=== PATIENT | female | born 1955 | race American Indian/Alaskan Native ===

== ENCOUNTER 2019-07-10 12:10 | Emergency (ER) | payer OTHER ==
--- NOTE | 2019-07-10 12:29 | Event Note ---
ED Screening Note Date of service: 07/10/19 Time: 12:24 ED Screening Note: This is a 64 y.o. F. that presents to the ER with headache, left sided facial pain numbness and LUE numbness. Patient states symptoms started this morning. This initial assessment/diagnostic orders/clinical plan/treatment(s) is/are subject to change based on patients health status, clinical progression and re- assessment by fellow clinical providers in the ED. Further treatment and workup at subsequent clinical providers discretion. Patient/guardian urged not to elope from the ED as their condition may be serious if not clinically assessed and managed. Initial orders include: Labs and CT of head
[2019-07-10 13:56] LABS: BUN/Creatinine Ratio 20; Blood Urea Nitrogen 14 mg/dL (7-17); Calcium 9.2 mg/dL (8.4-10.2); Hemolysis Index 19
[2019-07-10 14:15] LABS: Basophils % (Auto) 0.6 % (0.0-1.8); Eosinophils # (Auto) 0.1 K/mm3 (0.0-0.4); Eosinophils % (Auto) 0.9 % (0.0-4.3); Hematocrit 40.8 % (30.3-42.9); Hemoglobin 13.5 gm/dl (10.1-14.3); Lymphocytes # (Auto) 1.8 K/mm3 (1.2-5.4); Lymphocytes % (Auto) 24.8 % (13.4-35.0); Mean Corpuscular HGB Conc 33 % (30-34); Mean Corpuscular Volume 95 fl (79-97); Monocytes # (Auto) 0.5 K/mm3 (0.0-0.8); Monocytes % (Auto) 6.1 % (0.0-7.3); Platelet Count 226 K/mm3 (140-440); Red Blood Count 4.31 M/mm3 (3.65-5.03); Red Cell Distribution Width 12.5 % (13.2-15.2)
--- NOTE | 2019-07-10 14:46 | Cat Scan Report ---
CT HEAD WITHOUT CONTRAST INDICATION : Migraine headaches. TECHNIQUE: Axial imaging performed from the skull apex through the skull base without the use of con trast. Sagittal and coronal reformatted images. All CT scans at this location are performed using C T dose reduction for ALARA by means of automated exposure control. COMPARISON: None FINDINGS: Parenchyma: No acute intracranial hemorrhage or parenchymal abnormality. Ventricles: Ventricles are normal in size and appear symmetric. Bones: No acute osseous abnormality. Sinuses: Sinuses and mastoid air cells are clear. Soft tissues: Soft tissues including the orbits appear normal. IMPRESSION: No acute abnormality. Signer Name: Talon Yoo Jr, MD Signed: 07/10/2019 2:42 PM Workstation Name: [id number]
--- NOTE | 2019-07-10 16:45 | Emergency Department Report ---
ED General Adult HPI - General Chief complaint: Neuro Symptoms/Deficit Stated complaint: CHEST PAIN/SEIZURE/NAUSEA/SOB Time Seen by Provider: 07/10/19 12:23 Source: patient Mode of arrival: Wheelchair Limitations: No Limitations - History of Present Illness Initial comments: 64-year-old female with a history of vertigo presents after stating that she had a seizure earlier today. Patient denies any prior history of seizure activity. Patient denies any urinary incontinence or tongue biting. Patient complains of tingling in her left arm. Patient states she's been having chest pain as well as started today. Patient states the pain is currently resolved. Patient denies any shortness of breath. Patient has no history of PE or DVT. Patient denies any fecal incontinence and denies headache. - Related Data Allergies Allergy/AdvReac Type Severity Reaction Status Date / Time tramadol Allergy Hives Verified 07/10/19 12:14 Sulfa (Sulfonamide AdvReac Hives Verified 07/10/19 12:14 Antibiotics) ED Review of Systems ROS: Stated complaint: CHEST PAIN/SEIZURE/NAUSEA/SOB Other details as noted in HPI Constitutional: denies: chills, fever Eyes: denies: eye pain, eye discharge, vision change ENT: denies: ear pain, throat pain Respiratory: SOB at rest Cardiovascular: chest pain Endocrine: no symptoms reported Gastrointestinal: denies: abdominal pain, nausea, diarrhea Genitourinary: denies: urgency, dysuria, discharge Musculoskeletal: denies: back pain, joint swelling, arthralgia Skin: denies: rash, lesions Neurological: other (seizure) Psychiatric: denies: anxiety, depression Hematological/Lymphatic: denies: easy bleeding, easy bruising ED Past Medical Hx - Past Medical History Previous Medical History?: Yes Hx Seizures: Yes - Surgical History Past Surgical History?: Yes Additional Surgical History: C SECTION - Social History Smoking Status: Never Smoker Substance Use Type: None ED Physical Exam - General Limitations: No Limitations General appearance: alert, in no apparent distress, other (comfortable) - Head Head exam: Present: atraumatic, normocephalic - Eye Eye exam: Present: normal appearance - ENT ENT exam: Present: mucous membranes moist - Neck Neck exam: Present: normal inspection - Respiratory Respiratory exam: Present: normal lung sounds bilaterally. Absent: respiratory distress - Cardiovascular Cardiovascular Exam: Present: regular rate, normal rhythm. Absent: systolic murmur, diastolic murmur, rubs, gallop - GI/Abdominal GI/Abdominal exam: Present: soft, normal bowel sounds - Extremities Exam Extremities exam: Present: normal inspection - Back Exam Back exam: Present: normal inspection - Neurological Exam Neurological exam: Present: alert, oriented X3 - Psychiatric Psychiatric exam: Present: normal affect, normal mood - Skin Skin exam: Present: warm, dry, intact, normal color. Absent: rash ED Course Vital Signs 07/10/19 07/10/19 07/10/19 12:24 14:29 15:57 Temperature 98.8 F Pulse Rate 57 L 55 L 65 Respiratory 18 12 12 Rate Blood Pressure 129/78 136/74 143/77 [Left] O2 Sat by Pulse 100 100 99 Oximetry 07/10/19 17:19 Temperature Pulse Rate 54 L Respiratory 16 Rate Blood Pressure 137/72 [Left] O2 Sat by Pulse 97 Oximetry ED Medical Decision Making - Lab Data Result diagrams: 07/10/19 13:14 07/10/19 13:14 - EKG Data -: EKG Interpreted by Pr EKG shows normal: sinus rhythm Rate: normal - EKG Data When compared to previous EKG there are: no significant change - Medical Decision Making Patient currently is without chest pain. Patient has a EKG was shows no evidence of acute cardiac manifestation of disease. Troponin shows that is normal as well. Patient's CT head shows no acute pathology either. Patient be discharged to follow up with PCP as well as neurology as an outpatient. Patient is PERC negative. - Differential Diagnosis INtracranial Bleed; Dehdyration; anemia; pneumonia; pneumothorax; arrhythmi Critical care attestation.: If time is entered above; I have spent that time in minutes in the direct care o f this critically ill patient, excluding procedure time. ED Disposition Clinical Impression: Seizure, Chest pain Disposition: -01 TO HOME OR SELFCARE Is pt being admited?: No Condition: Stable Instructions: Chest Pain (ED), Epilepsy (ED) Referrals: [facility] BRADEN MD [Primary Care Provider] - 3-5 Days FABRICE SANTOS MD [Staff Physician] - 3-5 Days AYANNA HUERTAS MD [Staff Physician] - 3-5 Days Time of Disposition: 19:03 Print Language: NAMIBIAN
--- NOTE | 2019-07-10 18:25 | XRay Report ---
CHEST 1 VIEW INDICATION / CLINICAL INFORMATION: chest pain. COMPARISON: None available. FINDINGS: SUPPORT DEVICES: None. HEART / MEDIASTINUM: No significant abnormality. LUNGS / PLEURA: No significant pulmonary or pleural abnormality. No pneumothorax. ADDITIONAL FINDINGS: No significant additional findings. IMPRESSION: 1. No acute findings. Signer Name: Mario Alberto Mirza MD Signed: 07/10/2019 6:21 PM Workstation Name: [id number]
[2019-07-10] MEDS ORDERED: TYLENOL PO ONE (19:33)
[2019-07-10 19:49] VITALS: BP 128/65
== END 2019-07-10 19:50 | disposition home or self-care (01) ==
LOC: ED 12:10
DX: R56.9 Unspecified convulsions (principal); R07.89 Other chest pain; Z88.8 Allergy status to other drugs, medicaments and biological substances; Z88.2 Allergy status to sulfonamides
CPT/HCPCS: 36415; 70450; 71045; 80048; 84484; 85025; 93005; 93010